=== PATIENT | male | born 1995 | race Caucasian/White ===

== ENCOUNTER 2022-01-24 18:41 | Emergency (ER) | payer OTHER ==
[~2022-01-24] VITALS: Ht 188 cm; Wt 80.0 kg
[2022-01-24] MEDS ORDERED: TETANUS, DIPHTHERIA, PERTUSSIS VAC/PF 0.5ML (>10YR OLD) IM ONE (22:45)
[2022-01-24 23:21] VITALS: BP 124/78
== END 2022-01-24 23:20 | disposition home or self-care (01) ==
LOC: ER 18:41
DX: S91.331A Puncture wound without foreign body, right foot, initial encounter (principal); X58.XXXA Exposure to other specified factors, initial encounter; Y93.89 Activity, other specified; Y92.89 Other specified places as the place of occurrence of the external cause; Y99.8 Other external cause status
CPT/HCPCS: 90471; 90715; 99283